=== PATIENT | female | born 1990 | race American Indian/Alaskan Native ===

== ENCOUNTER 2019-06-12 01:31 | Emergency (ER) | payer OTHER ==
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
--- NOTE | 2019-06-12 08:21 | XRay Report ---
Chest with left RIBS 3 views. HISTORY: Left rib pain. FINDINGS: Heart size is normal. The lungs are clear. No bony injury. Signer Name: Maxime Mehta MD Signed: 06/12/2019 8:17 AM Workstation Name: [id number]
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
[2019-06-12 09:22] VITALS: BP 118/80
== END 2019-06-12 09:21 | disposition home or self-care (01) ==
LOC: ED 01:31
DX: S16.1XXA Strain of muscle, fascia and tendon at neck level, initial encounter (principal); R07.81 Pleurodynia; R51 Headache; V89.2XXA Person injured in unspecified motor-vehicle accident, traffic, initial encounter; Y93.89 Activity, other specified; Y92.410 Unspecified street and highway as the place of occurrence of the external cause; Y99.8 Other external cause status
CPT/HCPCS: 72040; 99283